=== PATIENT | female | born 1945 | race Caucasian/White ===

== ENCOUNTER → 2016-05-01 | Outpatient (CLI) | payer MEDICARE, OTHER | END | disposition home or self-care (01) | LOC: PCVCCLINIC 14:04 | PROVIDERS: ATTEND Internal Medicine | DX: E78.5 Hyperlipidemia, unspecified (principal); E07.9 Disorder of thyroid, unspecified; C50.919 Malignant neoplasm of unspecified site of unspecified female breast | CPT/HCPCS: 80061; 93005; G0463 ==

== ENCOUNTER → 2017-01-04 | Outpatient (CLI) | payer MEDICARE, OTHER | END | disposition home or self-care (01) | LOC: PCVCCLINIC 11:00 | PROVIDERS: ATTEND Internal Medicine | DX: I10 Essential (primary) hypertension (principal); E78.2 Mixed hyperlipidemia; R07.2 Precordial pain; R00.2 Palpitations; R00.1 Bradycardia, unspecified; R94.31 Abnormal electrocardiogram [ECG] [EKG]; Z87.891 Personal history of nicotine dependence; Z79.899 Other long term (current) drug therapy | CPT/HCPCS: 93005; G0463 ==

== ENCOUNTER → 2017-01-19 | Outpatient (CLI) | payer MEDICARE ==
[~2017-01-19] MED LIST: REGADENOSON 0.4 MG/5 ML DISP.SYRIN. IV ONE
--- NOTE | 2017-01-21 14:41 | PCVCIMAG ---
APPROVED REPORT Study performed: 01/19/2017 07:59:05 EXAM: Comprehensive 2D, Doppler, and color-flow Echocardiogram Patient Location: Echo lab Status: routine BSA: 1.74 HR: 47 bpmBP: 134/78 mmHg Rhythm: Bradycardia Other Information Study Quality: Adequate Risk Factors: Cardiac Risk Factors: HTN Indications Palpitations Chest Pain 2D Dimensions LVEF(%): 63.33 (>50%) IVSd: 7.79 (7-11mm) LVDd: 34.43 mm PWd: 8.35 (7-11mm)Ascending Ao: 32.13 (22-36mm) LVDs: 22.90 (25-40mm) Left Atrium: 33.77 (27-40mm) Aortic Root: 31.08 mm LV Single Plane 4CH: 65.38 % LV Single Plane 2CH: 59.61 %Bang's LVEF: 62.49 % Biplane EF: 63.3 % Volumes Left Atrial Volume (Systole) Single Plane 4CH: 62.76 mLSingle Plane 2CH: 44.27 mL LA ESV Index: 31.00 mL/m2 Aortic Valve AoV Peak Dev.: 1.18 m/s AO Peak Gr.: 5.52 mmHgLVOT Max P.80 mmHg LVOT Max V: 0.97 m/s Mitral Valve E/A Ratio: 1.5 MV Decel. Time: 273.77 ms MV E Max Dev.: 0.59 m/s MV A Dev.: 0.39 m/s IVRT: 128.03 ms Pulmonary Valve PV Peak Dev.: 0.86 m/sPV Peak Gr.: 2.99 mmHg Pulmonary Vein P Vein S: 0.42 m/sP Vein A: 0.33 m/s P Vein D: 0.47 m/sP Vein A Dur.: 121.1 msec P Vein S/D Ratio: 0.89 Tricuspid Valve TR Peak Dev.: 2.40 m/s TR Peak Gr.: 23.02 mmHg Left Ventricle The left ventricle is normal size. There is normal LV segmental wall motion. There is normal left ventricular wall thickness. Left ventricular systolic function is normal. The left ventricular ejection fraction is within the normal range. LVEF is 60-65%. Grade I - abnormal relaxation pattern. Right Ventricle The right ventricle is normal size. The right ventricular systolic function is normal. Atria The left atrium size is normal. The right atrium size is normal. Aortic Valve The aortic valve is normal in structure. No aortic regurgitation is present. There is no aortic valvular stenosis. Mitral Valve The mitral valve is normal in structure. There is no mitral valve regurgitation noted. No evidence of mitral valve stenosis. Tricuspid Valve The tricuspid valve is normal in structure. Trace tricuspid regurgitation with PAP of 30 mmHg. Pulmonic Valve The pulmonary valve is normal in structure. There is no pulmonic valvular regurgitation. Great Vessels The aortic root is normal in size. IVC is normal in size and collapses with >50% inspiration Pericardium There is no pericardial effusion. <Conclusion> Left ventricular systolic function is normal. There is normal LV segmental wall motion. LVEF 60-65%. Grade I diastolic dysfunction Structural valve disease was absent. No significant regurgitant or stenotic lesions Pulmononary artery pressure of 30mm Hg No pericardial effusion
--- NOTE | 2017-01-21 14:42 | PCVCIMAG ---
APPROVED REPORT Exam: Nuclear Stress Test Indication: Chest pain Patient Location: Out-Patient Stress Nurse: Babita Viramontes RN, Carley Zelaya RN [place] Tech:BO Cervantes Ht: 5 ft 5 in Wt: 147 lbs BSA: 1.74 m2 HR: 48 bpm BP: 166/69 mmHg BMI: 24.4 Rhythm: Sinus Bradycardia Medical History Medical History: Hyperlipidemia, HTN, Age, Former Smoker Medications: Ativan, zantac Allergies: Colesevelam, Tetnus Toxoid Pretest Chest Pain Characteristics: No chest pain Exercise History: Sedentary Physical Disabilities: Leg weakness NM EXAM: Myocardial Perfusion REST/STRESS Imaging Protocol: Rest Tc-99m/Stress Tc-99m 1 day Resting Data Rest SPECT myocardial perfusion imaging was performed in supine position 45 minutes following the intravenous injection of 9.1 mCi of Tc-99m Sestamibi. Time of rest injection: 0840 Date: 01/19/2017 Administration Route: IV Administration Site: Right AC Pharmacologic Stress Pharmacologic stress test was performed by injecting Regadenoson 0.4 mg IV push followed by the intravenous injection of 26.3 mCi of Tc-99m Sestamibi. Time of stress injection: 0950 Date: 01/19/2017 Administration Route: IV Administration Site: Right AC Study Quality Study: Good Study Data Post stress, the left ventricular ejection was 83%.. SSS: 1 SRS: 0 SDS: 1 TID = 1.18. Perfusion No evidence of stress induced ischemia or prior myocardial infarction. Wall Motion Normal left ventricular size and function with no regional wall motion abnormalities. Nuclear Conclusion No evidence of stress induced ischemia or prior myocardial infarction. Normal left ventricular size and function with no regional wall motion abnormalities. Post stress, the left ventricular ejection was 83%.. No prior study available for comparison. Interpreted by: Marciano Armenta MD Electronically Approved: 01/19/2017 15:00:48 Stress Test Details Stress Test: Pharmacologic stress testing performed using 0.4 mg of regadenoson per 5 mL given IV over 10 seconds. Reason for pharmacologic stress test: physical limitation. HR Resting HR: 48 bpmMax Heart Rate (APMHR): 147 bpm Max HR Achieved: 85 bpmTarget HR (85% APMHR): 124 bpm % of APMHR: 57 Recovery HR: 80 bpm BP Resting BP: 166/69 mmHg Max BP: 128/60 mmHg ECG Resting ECG: Sinus Bradycardia Stress ECG: Sinus Rhythm ST Change: None Maximum ST Deviation: 0 mm Arrhythmia: None Recovery ECG: Sinus Rhythm Recovery ST Deviation: 0 mm Recovery Arrhythmia: None Clinical Reason for Termination: Completed protocol Stress Symptoms: Abdominal discomfort, Dyspnea, Light-Headed Exercise duration: 0 min 55 sec Exercise capacity: 1 METs Symptoms resolved during recovery. Stress ECG Conclusion Clinical: Non-ischemic ECG: Non-ischemic <Conclusion> Clinical: Non-ischemic ECG: Non-ischemic
== END | disposition home or self-care (01) ==
LOC: PCVCIMAG 08:04
PROVIDERS: ATTEND Internal Medicine
DX: I10 Essential (primary) hypertension (principal); R00.2 Palpitations; R07.89 Other chest pain; E78.5 Hyperlipidemia, unspecified; Z87.891 Personal history of nicotine dependence
CPT/HCPCS: 78452; 93017; 93306; A9500; J2785

== ENCOUNTER → 2017-03-28 | Outpatient (CLI) | payer MEDICARE | END | disposition home or self-care (01) | LOC: KCIC MRI 12:42 | DX: M47.897 Other spondylosis, lumbosacral region (principal) | CPT/HCPCS: 72148 ==

== ENCOUNTER → 2017-11-07 | Outpatient (CLI) | payer MEDICARE ==
--- NOTE | 2017-11-07 13:35 | KCIC ---
MRI Cervical Spine Without Contrast History: Monoplegia of the left lower limb, left leg weakness, difficulty walking Technique: Multiplanar, multi sequential noncontrast MR imaging was performed of the cervical spine. Comparison: None Findings: There is some motion degradation, somewhat limits accurate evaluation of the neural foramina on the axial images. Cervical cord caliber is within normal limits without defined or expansile signal change. Cervical vertebral body stature and AP alignment are maintained. There is mild degenerative disc disease at C5-6. There is no significant marrow edema. 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 There is no significant abnormality of the cervical medullary junction. C2-C3: Neural foramina and spinal canal are adequate. C3-C4: Spinal canal and neural foramina are adequate. C4-C5: Neural foramina and spinal canal are adequate. There is bilateral facet degenerative change. C5-C6: There is minimal disc osteophyte complex and bulge. Central canal is borderline about 10 mm. There is bilateral facet degenerative change, also uncovertebral degenerative change. There is probable mild neural foramina compromise bilaterally. C6-C7: There is posterior bulge and likely more central shallow protrusion. Central canal is adequate about 10 to 11 mm. Neural foramina are not significantly narrowed. C7-T1: Spinal canal and neural foramina are adequate. Impression: 1. There is no significant cervical spinal stenosis. There is mild degenerative disc disease and spondylosis C5-6. There is mild neural foramina compromise bilaterally at C5-C6 due to facet and uncovertebral degenerative change. Electronically signed by: Nehemiah Bernardo MD (11/07/2017 1:32 PM) [id number]
--- NOTE | 2017-11-07 13:40 | KCIC ---
MRI Thoracic Spine without contrast History: Monoplegia of the left lower limb, left leg weakness, difficulty walking Technique: Multiplanar, multi sequential noncontrast MR imaging was performed of the thoracic spine. Contrast: None Comparison: None Findings: Thoracic vertebral body stature is preserved. Thoracic cord caliber is within normal limits without significant focal signal abnormality. No significant marrow edema. There are some cystic foci in the neural foramina such as bilaterally at T9-10, T10-11, T11-T12, on the right at T10-11, T8-T9, T4-5, and on the left at T1-2 and T2-T3. There is no significant thoracic spinal stenosis at any level. There is no significant focal posterior disc abnormality of the thoracic spine. There is [id number] narrowing of the right T8-T9 and T9-T10 neural foramina by facets. There is mild degenerative disc disease T7-8, mild disc desiccation at other levels. Impression: 1. There is no significant thoracic spinal stenosis. There is mild to moderate narrowing of the right T8-9 and T9-T10 neural foramina by facets. Cystic foci in the neural foramina as stated are nonspecific although most commonly due to nerve root sleeve cysts. Electronically signed by: Nehemiah Bernardo MD (11/07/2017 1:37 PM) [id number]
== END | disposition home or self-care (01) ==
LOC: KCIC MRI 12:04
PROVIDERS: ATTEND Physician Assistant Surgical
DX: M50.322 Other cervical disc degeneration at C5-C6 level (principal); M48.04 Spinal stenosis, thoracic region; M51.34 Other intervertebral disc degeneration, thoracic region; M47.892 Other spondylosis, cervical region; E78.2 Mixed hyperlipidemia; I10 Essential (primary) hypertension; E78.00 Pure hypercholesterolemia, unspecified; Z85.3 Personal history of malignant neoplasm of breast; Z87.891 Personal history of nicotine dependence
CPT/HCPCS: 72141; 72146